=== PATIENT | male | born 1960 | race African-American/Black ===

== ENCOUNTER 2019-09-15 10:18 | Inpatient (IN) | payer MEDICAID ==
[~2019-09-15] VITALS: Ht 172.7 cm; Wt 68.0 kg
[2019-09-15 10:45] VITALS: BP 115/79
[2019-09-15 10:56] LABS: HEMATOCRIT 44.5 % (42.0-52.0); MEAN CORPUSCULAR VOLUME 90 FL (80-99); PLATELET COUNT 99 K/UL (150-450); RED BLOOD COUNT 4.94 M/UL (4.70-6.10); RED CELL DISTRIBUTION WIDTH 11.4 % (11.6-14.8); WHITE BLOOD COUNT 3.6 K/UL (4.8-10.8)
[2019-09-15 11:00] LABS: ANION GAP 11 mmol/L (5-15); BLOOD UREA NITROGEN 19 mg/dL (7-18); CALCIUM 8.3 MG/DL (8.5-10.1); CARBON DIOXIDE 26 MMOL/L (21-32); CHLORIDE 102 MMOL/L (98-107); CREATININE 1.6 MG/DL (0.55-1.30); SODIUM 139 MMOL/L (136-145)
[2019-09-15 11:11] LABS: ALANINE AMINOTRANSFERASE 138 U/L (12-78); ALBUMIN 3.7 G/DL (3.4-5.0); ALBUMIN/GLOBULIN RATIO 0.9 (1.0-2.7); ALKALINE PHOSPHATASE 64 U/L (46-116); ASPARTATE AMINO TRANSFERASE 161 U/L (15-37); BILIRUBIN,TOTAL 0.7 MG/DL (0.2-1.0)
--- NOTE | 2019-09-15 11:12 | Emergency Room Report ---
History of Present Illness General Chief Complaint: Generalized Weakness Source: Patient, EMS Present Illness HPI 58-year-old male presents for weakness, fever, cough. Symptoms x1 month. Cough is dry. Temp 100.5 in triage. Denies chest pain. States that he felt weak 2 days ago and passed out in the shower and hit his head. Has a cut to his left forehead. Tetanus unknown. Denies alcohol or drug use. Denies states he lives with his brother. States they have been typically self isolating. no known COVID contacts. No other aggravating relieving factors. 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 Patient History Past Medical History: none Past Surgical History: none Pertinent Family History: none Social History: Denies: smoking, alcohol use, drug use Immunizations: UTD Reviewed Nursing Documentation: PMH: Agreed; PSxH: Agreed Nursing Documentation-PMH Past Medical History: No Stated History Review of Systems All Other Systems: negative except mentioned in HPI Physical Exam Vital Signs Date Time Temp Pulse Resp B/P (MAP) Pulse Ox O2 Delivery O2 Flow Rate FiO2 09/15/19 10:15 100.6 79 16 113/72 (86) 95 Room Air Sp02 EP Interpretation: reviewed, normal General Appearance: no apparent distress, alert, GCS 15, non-toxic Head: normocephalic, other - 2cm laceration to L yarsanism. already healing Eyes: bilateral eye normal inspection, bilateral eye PERRL ENT: hearing grossly normal, normal pharynx, no angioedema, normal voice Neck: full range of motion, supple/symm/no masses Respiratory: chest non-tender, lungs clear, normal breath sounds, speaking full sentences Cardiovascular #1: regular rate, rhythm, no edema Cardiovascular #2: 2+ carotid (R), 2+ carotid (L), 2+ radial (R), 2+ radial (L) , 2+ dorsalis pedis (R), 2+ dorsalis pedis (L) Gastrointestinal: normal bowel sounds, non tender, soft, non-distended, no guarding, no rebound Rectal: deferred Genitourinary: normal inspection, no CVA tenderness Musculoskeletal: back normal, normal range of motion, gait/station normal, non- tender Neurologic: alert, motor strength/tone normal, oriented x3, sensory intact, responsive, speech normal Psychiatric: judgement/insight normal, memory normal, mood/affect normal, no suicidal/homicidal ideation Reflexes: 3+ bicep (R), 3+ bicep (L), 3+ tricep (R), 3+ tricep (L), 3+ knee (R) , 3+ knee (L) Skin: no rash Lymphatic: no adenopathy Medical Decision Making Diagnostic Impression: Primary Impression: Episode of generalized weakness Additional Impression: Suspected 2019-nCoV infection ER Course Hospital Course 58-year-old M presenting to ED with cough, weakness Differential diagnoses include: Pneumonia, CHF exacerbation, pneumothorax, fluid overload Clinical course Patient placed on stretcher. In isolation. I wore full PPE. On phototypesetting equipment monitor. After initial history and physical, I ordered labs, IV fluids, EKG, chest x-ray, blood cultures, UA. Patient placed on nasal cannula with O2 saturation improving Labs -leukopenia noted, hemoglobin/hematocrit stable, electrolytes ok, lactate okay troponins negative CXR - bilateral patchy opacities Concerning for COVID. Patient feels weak. Patient require admission. Antibiotics given. Case discussed with Dr. Porras and he agreed to the patient to his service for further care and support I feel this is a highly complex case requiring extensive working including EKG/ Rhythm strip, Xray/CT/US, Blood/urine lab work, repeat exams while in ED, and administration of strong opiates/narcotics for pain control, admission to hospital or close patient follow up. Diagnosis -episode generalized weakness, suspected COVID infection Patient admitted to floor in serious condition Labs Test 09/15/19 10:30 09/15/19 11:55 09/16/19 03:30 09/17/19 04:00 White Blood Count 3.6 K/UL (4.8-10.8) 3.5 K/UL (4.8-10.8) 3.9 K/UL (4.8-10.8) Red Blood Count 4.94 M/UL (4.70-6.10) 4.37 M/UL (4.70-6.10) 4.41 M/UL (4.70-6.10) Hemoglobin 15.0 G/DL (14.2-18.0) 13.2 G/DL (14.2-18.0) 13.2 G/DL (14.2-18.0) Hematocrit 44.5 % (42.0-52.0) 39.4 % (42.0-52.0) 39.7 % (42.0-52.0) Mean Corpuscular Volume 90 FL (80-99) 90 FL (80-99) 90 FL (80-99) Mean Corpuscular Hemoglobin 30.3 PG (27.0-31.0) 30.2 PG (27.0-31.0) 30.0 PG (27.0-31.0) Mean Corpuscular Hemoglobin Concent 33.6 G/DL (32.0-36.0) 33.5 G/DL (32.0-36.0) 33.3 G/DL (32.0-36.0) Red Cell Distribution Width 11.4 % (11.6-14.8) 11.5 % (11.6-14.8) 11.6 % (11.6-14.8) Platelet Count 99 K/UL (150-450) 85 K/UL (150-450) 96 K/UL (150-450) Mean Platelet Volume 11.4 FL (6.5-10.1) 10.4 FL (6.5-10.1) 10.4 FL (6.5-10.1) Neutrophils (%) (Auto) % (45.0-75.0) % (45.0-75.0) % (45.0-75.0) Lymphocytes (%) (Auto) % (20.0-45.0) % (20.0-45.0) % (20.0-45.0) Monocytes (%) (Auto) % (1.0-10.0) % (1.0-10.0) % (1.0-10.0) Eosinophils (%) (Auto) % (0.0-3.0) % (0.0-3.0) % (0.0-3.0) Basophils (%) (Auto) % (0.0-2.0) % (0.0-2.0) % (0.0-2.0) Differential Total Cells Counted 100 100 100 Neutrophils % (Manual) 71 % (45-75) 74 % (45-75) 78 % (45-75) Lymphocytes % (Manual) 20 % (20-45) 18 % (20-45) 15 % (20-45) Monocytes % (Manual) 9 % (1-10) 8 % (1-10) 7 % (1-10) Eosinophils % (Manual) 0 % (0-3) 0 % (0-3) 0 % (0-3) Basophils % (Manual) 0 % (0-2) 0 % (0-2) 0 % (0-2) Band Neutrophils 0 % (0-8) 0 % (0-8) 0 % (0-8) Platelet Estimate Decreased Decreased Decreased Platelet Morphology Normal Normal Normal Red Blood Cell Morphology Normal Normal Sodium Level 139 MMOL/L (136-145) 140 MMOL/L (136-145) 135 MMOL/L (136-145) Potassium Level 4.0 MMOL/L (3.5-5.1) 4.1 MMOL/L (3.5-5.1) 4.1 MMOL/L (3.5-5.1) Chloride Level 102 MMOL/L (98-107) 104 MMOL/L (98-107) 102 MMOL/L (98-107) Carbon Dioxide Level 26 MMOL/L (21-32) 21 MMOL/L (21-32) 22 MMOL/L (21-32) Anion Gap 11 mmol/L (5-15) 15 mmol/L (5-15) 11 mmol/L (5-15) Blood Urea Nitrogen 19 mg/dL (7-18) 13 mg/dL (7-18) 10 mg/dL (7-18) Creatinine 1.6 MG/DL (0.55-1.30) 1.2 MG/DL (0.55-1.30) 1.1 MG/DL (0.55-1.30) Estimat Glomerular Filtration Rate 44.6 mL/min (>60) > 60 mL/min (>60) > 60 mL/min (>60) Glucose Level 115 MG/DL (74-106) 99 MG/DL (74-106) 103 MG/DL (74-106) Lactic Acid Level 1.00 mmol/L (0.4-2.0) Calcium Level 8.3 MG/DL (8.5-10.1) 7.5 MG/DL (8.5-10.1) 7.7 MG/DL (8.5-10.1) Total Bilirubin 0.7 MG/DL (0.2-1.0) 0.4 MG/DL (0.2-1.0) 0.6 MG/DL (0.2-1.0) Aspartate Amino Transf (AST/SGOT) 161 U/L (15-37) 98 U/L (15-37) 76 U/L (15-37) Alanine Aminotransferase (ALT/SGPT) 138 U/L (12-78) 93 U/L (12-78) 77 U/L (12-78) Alkaline Phosphatase 64 U/L (46-116) 51 U/L (46-116) 51 U/L (46-116) Troponin I 0.000 ng/mL (0.000-0.056) Pro-B-Type Natriuretic Peptide 53 pg/mL (0-125) Total Protein 7.8 G/DL (6.4-8.2) 6.4 G/DL (6.4-8.2) 6.5 G/DL (6.4-8.2) Albumin 3.7 G/DL (3.4-5.0) 2.9 G/DL (3.4-5.0) 2.8 G/DL (3.4-5.0) Globulin 4.1 g/dL 3.5 g/dL 3.7 g/dL Albumin/Globulin Ratio 0.9 (1.0-2.7) 0.8 (1.0-2.7) 0.8 (1.0-2.7) Urine Color Yellow Urine Appearance Clear Urine pH 6 (4.5-8.0) Urine Specific Mize 1.020 (1.005-1.035) Urine Protein 3+ (NEGATIVE) Urine Glucose (UA) Negative (NEGATIVE) Urine Ketones 1+ (NEGATIVE) Urine Blood 1+ (NEGATIVE) Urine Nitrite Negative (NEGATIVE) Urine Bilirubin Negative (NEGATIVE) Urine Urobilinogen 1 MG/DL (0.0-1.0) Urine Leukocyte Esterase 1+ (NEGATIVE) Urine RBC 0-2 /HPF (0 - 0) Urine WBC 0-2 /HPF (0 - 0) Urine Squamous Epithelial Cells Occasional /LPF Urine Amorphous Sediment Occasional /LPF (NONE) Urine Bacteria Occasional /HPF (NONE) Urine Mucus Moderate /LPF (NONE/OCC) Anisocytosis 1+ Total Creatine Kinase 310 U/L (26-308) Thyroid Stimulating Hormone (TSH) 0.847 uiU/mL (0.358-3.740) Hepatitis B Surface Antigen Negative (Negative) Hepatitis B Surface Antibody, Quant 5.9 mIU/mL (Immunity>9.9) Hepatitis C Antibody <0.1 s/co ratio EKG Diagnostic Results Rate: normal Rhythm: NSR ST Segments: no acute changes ASA given to the pt in ED: No Rhythm Strip Diag. Results EP Interpretation: yes Rhythm: NSR, no PVC's, no ectopy Chest X-Ray Diagnostic Results Chest X-Ray Diagnostic Results : Chest X-Ray Ordered: Yes # of Views/Limited/Complete: 1 View Indication: Shortness of Breath EP Interpretation: Yes Interpretation: no pneumothorax, other - bilateral patchy opacities Impression: Other - PNA Vs COVID Electronically Signed by: Electronically signed by Victor Hugo Peterson MD Last Vital Signs Date Time Temp Pulse Resp B/P (MAP) Pulse Ox O2 Delivery O2 Flow Rate FiO2 09/15/19 10:45 76 18 Room Air 09/15/19 10:45 100.5 115/79 96 Status: improved Disposition: ADMITTED INPATIENT Condition: Serious Scripts No Active Prescriptions or Reported Meds Victor Hugo Peterson MD Sep 15, 2019 11:12
[2019-09-15 12:12] LABS: APPEARANCE,URINE CLEAR; BILIRUBIN, URINE NEGATIVE (NEGATIVE); GLUCOSE, URINE (UA) NEGATIVE (NEGATIVE); KETONES,URINE 1+ (NEGATIVE); LEUKOCYTE ESTERASE ,URINE 1+ (NEGATIVE); NITRITE,URINE NEGATIVE (NEGATIVE); PH,URINE 6 (4.5-8.0); PROTEIN,URINE 3+ (NEGATIVE); UROBILINOGEN,URINE 1 MG/DL (0.0-1.0)
[2019-09-15] MEDS ORDERED: Acetaminophen 500mg (ES) tab ORAL ONE (12:15)
[2019-09-15 12:18] LABS: COLOR,URINE YELLOW
[2019-09-15] MEDS ORDERED: cefTRIAXone 1 GM in NS 55 ML IVPB ONE (12:30)
[2019-09-15] MEDS ORDERED: Azithromycin 500 MG in NS 275 ML IV ONE (12:30)
[2019-09-15] MEDS ORDERED: Tetanus/Diptheria/Pertussis IM ONE (12:30)
[2019-09-15] MEDS ORDERED: Bacitracin Oint UD TOPIC ONE (12:30)
--- NOTE | 2019-09-15 12:49 | Diagnostic Imaging Report ---
Indication: Headache status post trauma Technique: Continuous helical CT scanning of the head was performed utilizing automated exposure control without intravenous contrast material. Axial and coronal reconstructions were obtained. Comparison: None CT dose: Total DLP 1152.4 mGycm; CTDI vol 53.4 mGy Findings: There is no acute intracranial hemorrhage, mass effect or cortical edema. The ventricles, cisterns and sulci are mildly prominent consistent with mild age-related atrophy. Periventricular hypoattenuation is seen, a nonspecific finding. Visualized mastoid air cells and paranasal sinuses are unremarkable. No acute skull fracture. Left periorbital soft tissue swelling. IMPRESSION: Left periorbital soft tissue swelling. No acute skull fracture. No evidence of acute intracranial hemorrhage, mass effect or cortical edema The CT scanner at [facility] is accredited by the [employer] and the scans are performed using protocols designed to limit radiation exposure to as low as reasonably achievable to attain images of sufficient resolution adequate for diagnostic evaluation.
[2019-09-15 13:39] VITALS: BP 98/66
--- NOTE | 2019-09-15 14:03 | Diagnostic Imaging Report ---
Indication: Shortness of breath Technique: One view of the chest Comparison: none Findings: Suboptimal inspiration with some crowding of bronchovascular markings. There is equivocal mild interstitial prominence on the right as well as questionable streaky retrocardiac opacities. The pleural spaces are grossly clear Impression: Questionable minimal interstitial disease bilaterally, could indicate early infiltrates if real. Correlate with clinical findings
[2019-09-15 15:35] VITALS: BP 117/70
[2019-09-15 16:54] VITALS: BP 126/81
[2019-09-15] MEDS: 1/2NS w/KCl 20mEq 1000ml 1,000 ML IV SCH (18:44)
[2019-09-15 20:00] VITALS: BP 128/69
[2019-09-15] MEDS: cefTRIAXone 1 GM in D5W 55 ML IVPB SCH (20:04)
--- NOTE | 2019-09-15 21:59 | History and Physical Report ---
DATE OF ADMISSION: 09/15/2019 CHIEF COMPLAINT/REASON FOR HOSPITALIZATION: The patient is a 58-year-old man admitted with cough, fever, weakness, and elevated liver enzymes. He has been eating poorly and has anorexia and constipation. Apparently about 2 days ago, he fell to the floor from the . He might have passed out. There is a small cut on the left forehead. He has generally been healthy, but he has had increasing weakness. He is not known to have any COVID contacts, but he does have a cough. SURGERIES: Childhood surgery of abdominal, we cannot clarify. MEDICATIONS: None. HABITS: He is a nondrinker and nonsmoker. No use of illicit drugs. SOCIAL HISTORY: He lives with his brother. SYSTEM REVIEW: HEAD, EYES, EARS, NOSE, AND THROAT: Vision and hearing is good. Perhaps there is some decreased sense of smell. He is a poor historian. PULMONARY: Cough as above, persistent, nonproductive. No history of asthma or TB. CARDIAC: No angina or LA. GASTROINTESTINAL: Anorexia as above. No abdominal pain. No vomiting or diarrhea. GENITOURINARY: No dysuria, hematuria, or kidney stones. NEUROLOGIC: No CVA or seizures. PHYSICAL EXAMINATION: GENERAL: The patient is a well-developed man. VITAL SIGNS: Temperature 100.6, heart rate 79, respirations 16, and blood pressure 113/72. HEAD, EYES, EARS, NOSE, AND THROAT: Sclerae are nonicteric. Ocular motion is intact in all directions. There is a 2 cm laceration to the left jain which is healing. NECK: No adenopathy. LUNGS: Clear. HEART: Regular rhythm. No murmur. ABDOMEN: Soft. No focal tenderness. I am unable to feel liver or spleen. EXTREMITIES: No edema cyanosis or clubbing. NEUROLOGIC: He is alert and responsive. Cranial nerves are intact. No focal weakness. REVIEW OF DATABASE: Chest x-ray shows some increased interstitial markings, possibly early infiltrate. The CT of the brain was done showing left periorbital soft tissue swelling. No acute intracranial lesion. He has the following laboratory results, white count 3.6, hemoglobin is 15, and platelets is 99,000. The chemistries show normal electrolytes, BUN 19, creatinine 1.6, glucose 115. AST 161 and ALT 138. Troponin 0. Albumin 3.7. The urine is significant for 3+ protein, 1+ ketones, 1+ blood, 0 to 2 rbc's, and 0 to 2 wbc's per high-power field. IMPRESSION: 1. Fevers and cough, rule out COVID-19, rule out community-acquired pneumonia. 2. Dehydration. 3. Likely acute renal failure. 4. Abnormal urinalysis with proteinuria and positive blood, concerned for rhabdomyolysis, concerned for possible proteinuric renal disease. 5. Elevated liver enzymes, nonspecific. Rule out biliary tract or liver lesions or hepatitis. PLAN: 1. Hydration. 2. Tests for COVID-19 pending. Treat with antibiotics for community-acquired pneumonia. 3. Follow up on the renal function studies. Nas Porras M.D. DR: ANGELY JOB#: [id number] CC:
[2019-09-16] VITALS: BP 117/79
[2019-09-16] MEDS: 1/2NS w/KCl 20mEq 1000ml 1,000 ML IV SCH ×3 (03:10→17:41)
[2019-09-16 04:00] VITALS: BP 127/73
[2019-09-16 06:24] LABS: HEMATOCRIT 39.4 % (42.0-52.0); HEMOGLOBIN 13.2 G/DL (14.2-18.0); MEAN CORPUSCULAR VOLUME 90 FL (80-99); PLATELET COUNT 85 K/UL (150-450); RED BLOOD COUNT 4.37 M/UL (4.70-6.10); RED CELL DISTRIBUTION WIDTH 11.5 % (11.6-14.8); WHITE BLOOD COUNT 3.5 K/UL (4.8-10.8)
[2019-09-16 07:24] LABS: CREATINE KINASE 310 U/L (26-308)
[2019-09-16 07:29] LABS: ALANINE AMINOTRANSFERASE 93 U/L (12-78); ALBUMIN 2.9 G/DL (3.4-5.0); ALBUMIN/GLOBULIN RATIO 0.8 (1.0-2.7); ALKALINE PHOSPHATASE 51 U/L (46-116); ANION GAP 15 mmol/L (5-15); ASPARTATE AMINO TRANSFERASE 98 U/L (15-37); BILIRUBIN,TOTAL 0.4 MG/DL (0.2-1.0); BLOOD UREA NITROGEN 13 mg/dL (7-18); CALCIUM 7.5 MG/DL (8.5-10.1); CARBON DIOXIDE 21 MMOL/L (21-32); CHLORIDE 104 MMOL/L (98-107); CREATININE 1.2 MG/DL (0.55-1.30); POTASSIUM 4.1 MMOL/L (3.5-5.1); SODIUM 140 MMOL/L (136-145)
[2019-09-16 08:00] VITALS: BP 133/76
[2019-09-16] MEDS: Azithromycin 250 MG in D5W 275 ML IV SCH (08:49)
[2019-09-16] MEDS ORDERED: cefTRIAXone 1 GM in D5W 55 ML IVPB SCH (09:00)
--- NOTE | 2019-09-16 11:00 | Diagnostic Imaging Report ---
Indication: Cough Technique: One view of the chest Comparison: 09/15/2019 Findings: Bilateral right greater than left infiltrates appears slightly increased as compared to the prior exam. The heart size is normal. The pleural spaces are clear Impression: Slightly increased bilateral infiltrates, over one day
[2019-09-16 12:00] VITALS: BP 130/75
--- NOTE | 2019-09-16 12:34 | General Progress Note ---
Assessment/Plan Problem List: (1) Elevated liver enzymes ICD Codes: R74.8 - Abnormal levels of other serum enzymes SNOMED: 310504466 (2) Community acquired pneumonia ICD Codes: J18.9 - Pneumonia, unspecified organism SNOMED: 114301694 (3) Suspected 2019-nCoV infection ICD Codes: Z20.828 - Contact with and (suspected) exposure to other viral communicable diseases SNOMED: 449743371 (4) Episode of generalized weakness ICD Codes: R53.1 - Weakness SNOMED: 18662145 (5) EMILY (acute kidney injury) ICD Codes: N17.9 - Acute kidney failure, unspecified SNOMED: 4860365, 92179040 (6) Dehydration ICD Codes: E86.0 - Dehydration SNOMED: 83779678 Assessment/Plan: await covid, empiric atb, us abd Subjective Constitutional: Reports: weakness HEENT: Reports: no symptoms Cardiovascular: Reports: no symptoms Respiratory: Reports: no symptoms Gastrointestinal/Abdominal: Reports: no symptoms Genitourinary: Reports: no symptoms Neurologic/Psychiatric: Reports: no symptoms Endocrine: Reports: no symptoms Hematologic/Lymphatic: Reports: no symptoms Allergies: Coded Allergies: No Known Allergies (Unverified , 09/15/19) Objective Last 24 Hour Vital Signs Date Time Temp Pulse Resp B/P (MAP) Pulse Ox O2 Delivery O2 Flow Rate FiO2 09/16/19 09:00 Room Air 09/16/19 08:00 98.2 66 20 133/76 (95) 96 09/16/19 04:00 98.6 68 18 127/73 (91) 93 09/16/19 00:00 98.9 74 18 117/79 (92) 96 09/15/19 21:00 Room Air 09/15/19 20:00 99.8 70 20 128/69 (88) 96 09/15/19 17:20 Room Air 09/15/19 16:57 97.8 09/15/19 16:54 62 24 126/81 99 Nasal Cannula 2.0 09/15/19 15:51 59 24 Nasal Cannula 2.0 09/15/19 15:35 57 24 117/70 97 Room Air 09/15/19 13:39 99.1 60 27 98/66 95 Room Air 09/15/19 12:42 99.8 Intake and Output 09/15/19 09/16/19 19:00 07:00 Intake Total 2275 ml 1360 ml Balance 2275 ml 1360 ml Intake Oral 0 ml IV Total 2275 ml 1360 ml # Voids 2 Laboratory Tests 09/16/19 03:30: White Blood Count 3.5L, Red Blood Count 4.37L, Hemoglobin 13.2L, Hematocrit 39.4L, Mean Corpuscular Volume 90, Mean Corpuscular Hemoglobin 30.2, Mean Corpuscular Hemoglobin Concent 33.5, Red Cell Distribution Width 11.5L, Platelet Count 85L, Mean Platelet Volume 10.4H, Neutrophils (%) (Auto) , Lymphocytes (%) (Auto) , Monocytes (%) (Auto) , Eosinophils (%) (Auto) , Basophils (%) (Auto) , Differential Total Cells Counted 100, Neutrophils % ( Manual) 74, Lymphocytes % (Manual) 18L, Monocytes % (Manual) 8, Eosinophils % ( Manual) 0, Basophils % (Manual) 0, Band Neutrophils 0, Platelet Estimate DecreasedL, Platelet Morphology Normal, Anisocytosis 1+, Sodium Level 140, Potassium Level 4.1, Chloride Level 104, Carbon Dioxide Level 21, Anion Gap 15, Blood Urea Nitrogen 13, Creatinine 1.2, Estimat Glomerular Filtration Rate > 60 , Glucose Level 99, Calcium Level 7.5L, Total Bilirubin 0.4, Aspartate Amino Transf (AST/SGOT) 98H, Alanine Aminotransferase (ALT/SGPT) 93H, Alkaline Phosphatase 51, Total Creatine Kinase 310H, Total Protein 6.4, Albumin 2.9L, Globulin 3.5, Albumin/Globulin Ratio 0.8L, Thyroid Stimulating Hormone (TSH) 0.847, Hepatitis B Surface Antigen [Pending], Hepatitis B Surface Antibody, Quant [Pending], Hepatitis C Antibody [Pending] Height (Feet): 5 Height (Inches): 8.00 Weight (Pounds): 150 General Appearance: no apparent distress, alert EENT: normal ENT inspection Neck: normal alignment Cardiovascular: regular rhythm Respiratory/Chest: lungs clear Abdomen: non tender Edema: no edema noted Arm (L), no edema noted Arm (R), no edema noted Leg (L), no edema noted Leg (R), no edema noted Pedal (L), no edema noted Pedal (R), no edema noted Generalized Nas Porras MD Sep 16, 2019 12:34
[2019-09-16] MEDS ORDERED: Milk of Magnesia 30ml Ud ORAL PRN (12:45)
[2019-09-16] MEDS ORDERED: Acetaminophen 650 MG SUPP RECTAL PRN (12:45)
[2019-09-16 16:00] VITALS: BP 117/70
--- NOTE | 2019-09-16 16:15 | Consultation ---
DATE OF CONSULTATION: 09/16/2019 INFECTIOUS DISEASE CONSULTATION This consult is for coverage of Dr. Vincent. CONSULTING PHYSICIAN: Kobi Nichols MD. PRIMARY ATTENDING: Nas Porras MD. REASON FOR CONSULT: Pneumonia. HISTORY OF PRESENT ILLNESS: This is a 58-year-old male admitted yesterday complaining of weakness. He is not feeling good for couple of weeks, but recently started to develop coughing and fever. He passed out at home. At the time of admission had fever of 100.6. PAST MEDICAL HISTORY: Insignificant. Had childhood abdominal surgery. Does not remember what was the reason for surgery. ALLERGIES: No known drug allergy. MEDICATIONS: Getting azithromycin, ceftriaxone. SOCIAL HISTORY: Single. Denies alcohol, drug abuse, or smoking. REVIEW OF SYSTEMS: Feels very weak. Has dry mouth, decreased appetite, fever, dry cough when breathes deeply. No nausea. No vomiting. No edema. No dysuria. PHYSICAL EXAMINATION: VITAL SIGNS: Temperature 98.2, pulse 66, blood pressure 133/76. GENERAL APPEARANCE: Seems to be well developed. No acute distress. HEAD AND NECK: Some scratches in the left side of the face near eyelid. HEART: Normal rate. LUNGS: Clear. ABDOMEN: Soft, nontender. EXTREMITIES: No edema. NEUROLOGIC: He is awake, alert, oriented x3. LABORATORY AND DIAGNOSTIC DATA: WBC 3.5, hemoglobin 13.2, hematocrit 39.4, platelets is 85. Has decrease in lymphocytes to 18%. Patient had a CT scan of the head that showed left periorbital soft tissue swelling. No fracture. Chest x-ray showed bilateral infiltrates. IMPRESSION: Community-acquired pneumonia. Patient is very suspicious to have COVID-19 disease. Had syncopal episode, acute renal failure, elevation in liver enzymes, leukopenia, thrombocytopenia. RECOMMENDATION: Continue with ceftriaxone and Zithromax. We will follow up COVID-19 test. We will follow up the cultures. At the end of my exam, I thank Dr. Porras for involving me in the care of this patient. Kobi Nichols M.D. DR: NUNO JOB#: [id number] CC:
[2019-09-16 20:00] VITALS: BP 123/78
[2019-09-16] MEDS: cefTRIAXone 1 GM in D5W 55 ML IVPB SCH (20:11)
[2019-09-17] VITALS: BP 138/80
[2019-09-17] MEDS: 1/2NS w/KCl 20mEq 1000ml 1,000 ML IV SCH ×3 (03:09→15:58)
[2019-09-17 04:00] VITALS: BP 141/78
[2019-09-17 05:56] LABS: HEMATOCRIT 39.7 % (42.0-52.0); HEMOGLOBIN 13.2 G/DL (14.2-18.0); MEAN CORPUSCULAR VOLUME 90 FL (80-99); PLATELET COUNT 96 K/UL (150-450); RED BLOOD COUNT 4.41 M/UL (4.70-6.10); RED CELL DISTRIBUTION WIDTH 11.6 % (11.6-14.8); WHITE BLOOD COUNT 3.9 K/UL (4.8-10.8)
[2019-09-17 06:07] LABS: ALANINE AMINOTRANSFERASE 77 U/L (12-78); ALBUMIN 2.8 G/DL (3.4-5.0); ALBUMIN/GLOBULIN RATIO 0.8 (1.0-2.7); ALKALINE PHOSPHATASE 51 U/L (46-116); ANION GAP 11 mmol/L (5-15); ASPARTATE AMINO TRANSFERASE 76 U/L (15-37); BILIRUBIN,TOTAL 0.6 MG/DL (0.2-1.0); BLOOD UREA NITROGEN 10 mg/dL (7-18); CALCIUM 7.7 MG/DL (8.5-10.1); CARBON DIOXIDE 22 MMOL/L (21-32); CHLORIDE 102 MMOL/L (98-107); CREATININE 1.1 MG/DL (0.55-1.30); POTASSIUM 4.1 MMOL/L (3.5-5.1); SODIUM 135 MMOL/L (136-145)
[2019-09-17 08:00] VITALS: BP 138/76
[2019-09-17] MEDS: Azithromycin 250 MG in D5W 275 ML IV SCH (09:09)
--- NOTE | 2019-09-17 10:14 | Infectious Diseases Prog Note ---
Assessment/Plan Assessment/Plan antibiotics : ceftriaxone, azithromycin A 1. COVID 19 pneumonia on room air, O2 saturation 93 percent 2. thrombocytopenia 3. increased LFT improving P 1. consider remdesivir EUA 2. d/c ceftriaxone, azithromycin 3. will follow up cultures 4. continue isolation Subjective Constitutional: Denies: fever, chills Respiratory: Denies: shortness of breath, dry cough Gastrointestinal/Abdominal: Reports: diarrhea; Denies: nausea, vomiting Musculoskeletal: Denies: pain Allergies: Coded Allergies: No Known Allergies (Unverified , 09/15/19) Objective Last 24 Hour Vital Signs Date Time Temp Pulse Resp B/P (MAP) Pulse Ox O2 Delivery O2 Flow Rate FiO2 09/17/19 09:00 Room Air 09/17/19 08:00 99.0 70 22 138/76 (96) 95 09/17/19 04:00 99.5 68 25 141/78 (99) 93 09/17/19 00:00 98.7 82 23 138/80 (99) 94 09/16/19 21:00 Room Air 09/16/19 20:00 99.9 65 22 123/78 (93) 93 09/16/19 16:00 100.0 65 18 117/70 (86) 95 09/16/19 12:00 98.4 68 20 130/75 (93) 96 Height (Feet): 5 Height (Inches): 8.00 Weight (Pounds): 150 Microbiology Date/Time Source Procedure Growth Status 09/15/19 13:18 Nasopharynx Coronavirus COVID-19 PCR ([facility]) - Final Complete Laboratory Tests Test 09/17/19 04:00 White Blood Count 3.9 K/UL (4.8-10.8) L Red Blood Count 4.41 M/UL (4.70-6.10) L Hemoglobin 13.2 G/DL (14.2-18.0) L Hematocrit 39.7 % (42.0-52.0) L Mean Corpuscular Volume 90 FL (80-99) Mean Corpuscular Hemoglobin 30.0 PG (27.0-31.0) Mean Corpuscular Hemoglobin Concent 33.3 G/DL (32.0-36.0) Red Cell Distribution Width 11.6 % (11.6-14.8) Platelet Count 96 K/UL (150-450) L Mean Platelet Volume 10.4 FL (6.5-10.1) H Neutrophils (%) (Auto) % (45.0-75.0) Lymphocytes (%) (Auto) % (20.0-45.0) Monocytes (%) (Auto) % (1.0-10.0) Eosinophils (%) (Auto) % (0.0-3.0) Basophils (%) (Auto) % (0.0-2.0) Differential Total Cells Counted 100 Neutrophils % (Manual) 78 % (45-75) H Lymphocytes % (Manual) 15 % (20-45) L Monocytes % (Manual) 7 % (1-10) Eosinophils % (Manual) 0 % (0-3) Basophils % (Manual) 0 % (0-2) Band Neutrophils 0 % (0-8) Platelet Estimate Decreased L Platelet Morphology Normal Red Blood Cell Morphology Normal Sodium Level 135 MMOL/L (136-145) L Potassium Level 4.1 MMOL/L (3.5-5.1) Chloride Level 102 MMOL/L (98-107) Carbon Dioxide Level 22 MMOL/L (21-32) Anion Gap 11 mmol/L (5-15) Blood Urea Nitrogen 10 mg/dL (7-18) Creatinine 1.1 MG/DL (0.55-1.30) Estimat Glomerular Filtration Rate > 60 mL/min (>60) Glucose Level 103 MG/DL (74-106) Calcium Level 7.7 MG/DL (8.5-10.1) L Total Bilirubin 0.6 MG/DL (0.2-1.0) Aspartate Amino Transf (AST/SGOT) 76 U/L (15-37) H Alanine Aminotransferase (ALT/SGPT) 77 U/L (12-78) Alkaline Phosphatase 51 U/L (46-116) Total Protein 6.5 G/DL (6.4-8.2) Albumin 2.8 G/DL (3.4-5.0) L Globulin 3.7 g/dL Albumin/Globulin Ratio 0.8 (1.0-2.7) L Current Medications Medications (Trade) Dose Ordered Sig/Vivek Route PRN Reason Start Time Stop Time Status Last Admin Dose Admin Acetaminophen (Tylenol) 650 mg Q4H PRN ORAL Temp >100.5 09/16/19 17:30 10/16/19 17:29 Azithromycin 250 mg/Dextrose 275 ml @ 275 mls/hr Q24HRS IV 09/16/19 09:00 09/21/19 08:59 09/17/19 09:09 Ceftriaxone Sodium 1 gm/ Dextrose 55 ml @ 110 mls/hr Q24H IVPB 09/15/19 21:00 09/22/19 20:59 09/16/19 20:11 Dextrose (Dextrose 50%) 25 ml Q30M PRN IV Hypoglycemia 09/15/19 17:15 12/14/19 17:14 Dextrose (Dextrose 50%) 50 ml Q30M PRN IV Hypoglycemia 09/15/19 17:15 12/14/19 17:14 Magnesium Hydroxide (Mom) 30 ml DAILYPRN PRN ORAL Constipation 09/16/19 12:45 10/16/19 12:44 Sodium 1,000 ml @ 125 mls/hr Q8H IV 09/15/19 18:11 10/15/19 18:10 09/17/19 09:10 Juhi Vincent MD Sep 17, 2019 10:14
[2019-09-17] MEDS ORDERED: Remdesivir Fact Sheet MISC SCH (11:30)
[2019-09-17 12:00] VITALS: BP 126/75
--- NOTE | 2019-09-17 13:42 | General Progress Note ---
Assessment/Plan Problem List: (1) Elevated liver enzymes ICD Codes: R74.8 - Abnormal levels of other serum enzymes SNOMED: 258861283 (2) Community acquired pneumonia ICD Codes: J18.9 - Pneumonia, unspecified organism SNOMED: 341467843 (3) Suspected 2019-nCoV infection ICD Codes: Z20.828 - Contact with and (suspected) exposure to other viral communicable diseases SNOMED: 364112074 (4) Episode of generalized weakness ICD Codes: R53.1 - Weakness SNOMED: 61672367 (5) EMILY (acute kidney injury) ICD Codes: N17.9 - Acute kidney failure, unspecified SNOMED: 2137004, 59105488 (6) Dehydration ICD Codes: E86.0 - Dehydration SNOMED: 85225577 (7) COVID-19 virus detected ICD Codes: U07.1 - COVID-19 SNOMED: 043637372, 137792201 Assessment/Plan: await covid, + empiric atb stopped, remdesivir, , us abd cancel Subjective Constitutional: Reports: weakness HEENT: Reports: no symptoms Respiratory: Reports: cough Gastrointestinal/Abdominal: Reports: poor appetite Genitourinary: Reports: no symptoms Neurologic/Psychiatric: Reports: no symptoms Endocrine: Reports: no symptoms Hematologic/Lymphatic: Reports: no symptoms Allergies: Coded Allergies: No Known Allergies (Unverified , 09/15/19) Objective Last 24 Hour Vital Signs Date Time Temp Pulse Resp B/P (MAP) Pulse Ox O2 Delivery O2 Flow Rate FiO2 09/17/19 12:00 98.2 69 19 126/75 (92) 93 09/17/19 09:00 Room Air 09/17/19 08:00 99.0 70 22 138/76 (96) 95 09/17/19 04:00 99.5 68 25 141/78 (99) 93 09/17/19 00:00 98.7 82 23 138/80 (99) 94 09/16/19 21:00 Room Air 09/16/19 20:00 99.9 65 22 123/78 (93) 93 09/16/19 16:00 100.0 65 18 117/70 (86) 95 Intake and Output 09/16/19 09/17/19 19:00 07:00 Intake Total 1575 ml 1180 ml Balance 1575 ml 1180 ml Intake Oral 300 ml IV Total 1275 ml 1180 ml # Voids 3 2 # Bowel Movements 1 Laboratory Tests 09/17/19 04:00: White Blood Count 3.9L, Red Blood Count 4.41L, Hemoglobin 13.2L, Hematocrit 39.7L, Mean Corpuscular Volume 90, Mean Corpuscular Hemoglobin 30.0, Mean Corpuscular Hemoglobin Concent 33.3, Red Cell Distribution Width 11.6, Platelet Count 96L, Mean Platelet Volume 10.4H, Neutrophils (%) (Auto) , Lymphocytes (%) (Auto) , Monocytes (%) (Auto) , Eosinophils (%) (Auto) , Basophils (%) (Auto) , Differential Total Cells Counted 100, Neutrophils % (Manual) 78H, Lymphocytes % (Manual) 15L, Monocytes % (Manual) 7, Eosinophils % (Manual) 0, Basophils % ( Manual) 0, Band Neutrophils 0, Platelet Estimate DecreasedL, Platelet Morphology Normal, Red Blood Cell Morphology Normal, Sodium Level 135L, Potassium Level 4.1, Chloride Level 102, Carbon Dioxide Level 22, Anion Gap 11, Blood Urea Nitrogen 10, Creatinine 1.1, Estimat Glomerular Filtration Rate > 60 , Glucose Level 103, Calcium Level 7.7L, Total Bilirubin 0.6, Aspartate Amino Transf (AST/SGOT) 76H, Alanine Aminotransferase (ALT/SGPT) 77, Alkaline Phosphatase 51, Total Protein 6.5, Albumin 2.8L, Globulin 3.7, Albumin/Globulin Ratio 0.8L Height (Feet): 5 Height (Inches): 8.00 Weight (Pounds): 150 General Appearance: no apparent distress, alert EENT: normal ENT inspection Neck: normal alignment Cardiovascular: normal rate Respiratory/Chest: lungs clear Abdomen: non tender Edema: no edema noted Arm (L), no edema noted Arm (R), no edema noted Leg (L), no edema noted Leg (R), no edema noted Pedal (L), no edema noted Pedal (R), no edema noted Generalized Nas Porras MD Sep 17, 2019 13:42
[2019-09-17] MEDS ORDERED: Loading Dose:Remdesivir 200mg/NS 210ml IV SCH ×2 (14:00)
[2019-09-17 16:00] VITALS: BP 130/80
[2019-09-17 19:58] VITALS: BP 130/75
[2019-09-18] VITALS: BP 133/78
[2019-09-18 04:00] VITALS: BP 141/88
[2019-09-18 07:25] LABS: ALANINE AMINOTRANSFERASE 77 U/L (12-78); ALBUMIN 2.7 G/DL (3.4-5.0); ALBUMIN/GLOBULIN RATIO 0.7 (1.0-2.7); ALKALINE PHOSPHATASE 59 U/L (46-116); ANION GAP 11 mmol/L (5-15); ASPARTATE AMINO TRANSFERASE 66 U/L (15-37); BILIRUBIN,DIRECT 0.2 MG/DL (0.0-0.3); BILIRUBIN,TOTAL 0.6 MG/DL (0.2-1.0); BLOOD UREA NITROGEN 7 mg/dL (7-18); CARBON DIOXIDE 23 MMOL/L (21-32); CHLORIDE 104 MMOL/L (98-107); POTASSIUM 3.9 MMOL/L (3.5-5.1); SODIUM 138 MMOL/L (136-145)
[2019-09-18 08:00] VITALS: BP 120/82
[2019-09-18] MEDS: 1/2NS w/KCl 20mEq 1000ml 1,000 ML IV SCH (09:58)
--- NOTE | 2019-09-18 10:29 | Infectious Diseases Prog Note ---
Assessment/Plan Assessment/Plan antibiotics : remdesivir 09.17.19 - A 1. COVID 19 pneumonia on room air, O2 saturation 93 percent 2. thrombocytopenia 3. increased LFT improving P 1. consider remdesivir EUA day 2 2. will follow up cultures 3. continue isolation Subjective Constitutional: Denies: fever, chills Respiratory: Reports: shortness of breath, dry cough Gastrointestinal/Abdominal: Reports: diarrhea; Denies: nausea, vomiting Musculoskeletal: Denies: pain Allergies: Coded Allergies: No Known Allergies (Unverified , 09/15/19) Objective Last 24 Hour Vital Signs Date Time Temp Pulse Resp B/P (MAP) Pulse Ox O2 Delivery O2 Flow Rate FiO2 09/18/19 09:16 Room Air 09/18/19 08:00 98.2 70 18 120/82 (95) 92 09/18/19 04:00 97.5 60 22 141/88 (105) 95 09/18/19 00:00 99.5 82 20 133/78 (96) 93 09/17/19 21:00 Room Air 09/17/19 19:58 99.1 80 21 130/75 (93) 94 09/17/19 16:00 98.3 71 20 130/80 (97) 94 09/17/19 12:00 98.2 69 19 126/75 (92) 93 Height (Feet): 5 Height (Inches): 8.00 Weight (Pounds): 150 Microbiology Date/Time Source Procedure Growth Status 09/15/19 10:30 Blood Blood Culture - Preliminary NO GROWTH AFTER 48 HOURS Resulted 09/15/19 10:30 Blood Blood Culture - Preliminary NO GROWTH AFTER 48 HOURS Resulted 09/15/19 13:18 Nasopharynx Coronavirus COVID-19 PCR ([facility]) - Final Complete Laboratory Tests Test 09/18/19 04:00 Sodium Level 138 MMOL/L (136-145) Potassium Level 3.9 MMOL/L (3.5-5.1) Chloride Level 104 MMOL/L (98-107) Carbon Dioxide Level 23 MMOL/L (21-32) Anion Gap 11 mmol/L (5-15) Blood Urea Nitrogen 7 mg/dL (7-18) Creatinine 1.0 MG/DL (0.55-1.30) Estimat Glomerular Filtration Rate > 60 mL/min (>60) Glucose Level 96 MG/DL (74-106) Calcium Level 8.0 MG/DL (8.5-10.1) L Total Bilirubin 0.6 MG/DL (0.2-1.0) Direct Bilirubin 0.2 MG/DL (0.0-0.3) Aspartate Amino Transf (AST/SGOT) 66 U/L (15-37) H Alanine Aminotransferase (ALT/SGPT) 77 U/L (12-78) Alkaline Phosphatase 59 U/L (46-116) Total Protein 6.5 G/DL (6.4-8.2) Albumin 2.7 G/DL (3.4-5.0) L Globulin 3.8 g/dL Albumin/Globulin Ratio 0.7 (1.0-2.7) L Current Medications Medications (Trade) Dose Ordered Sig/Vivek Route PRN Reason Start Time Stop Time Status Last Admin Dose Admin Acetaminophen (Tylenol) 650 mg Q4H PRN ORAL Temp >100.5 09/16/19 17:30 10/16/19 17:29 Dextrose (Dextrose 50%) 25 ml Q30M PRN IV Hypoglycemia 09/15/19 17:15 12/14/19 17:14 Dextrose (Dextrose 50%) 50 ml Q30M PRN IV Hypoglycemia 09/15/19 17:15 12/14/19 17:14 Magnesium Hydroxide (Mom) 30 ml DAILYPRN PRN ORAL Constipation 09/16/19 12:45 10/16/19 12:44 Remdesivir 100 mg/ Sodium Chloride 250 ml @ 250 mls/hr Q24H IV 09/18/19 15:00 09/21/19 15:59 Sodium 1,000 ml @ 50 mls/hr Q20H IV 09/17/19 14:00 10/17/19 13:59 09/18/19 09:58 Juhi Vincent MD Sep 18, 2019 10:29
[2019-09-18 12:00] VITALS: BP 127/84
[2019-09-18] MEDS: Maintenance Dose:Remdesivir 100mg/NS 230ml x 4 Doses IV SCH ×2 (14:28)
[2019-09-18 16:00] VITALS: BP 130/83
--- NOTE | 2019-09-18 17:29 | General Progress Note ---
Assessment/Plan Problem List: (1) Elevated liver enzymes ICD Codes: R74.8 - Abnormal levels of other serum enzymes SNOMED: 336598557 (2) Community acquired pneumonia ICD Codes: J18.9 - Pneumonia, unspecified organism SNOMED: 719471071 (3) Suspected 2019-nCoV infection ICD Codes: Z20.828 - Contact with and (suspected) exposure to other viral communicable diseases SNOMED: 589137871 (4) Episode of generalized weakness ICD Codes: R53.1 - Weakness SNOMED: 13714749 (5) EMILY (acute kidney injury) ICD Codes: N17.9 - Acute kidney failure, unspecified SNOMED: 2718197, 25162342 (6) Dehydration ICD Codes: E86.0 - Dehydration SNOMED: 57389310 (7) COVID-19 virus detected ICD Codes: U07.1 - COVID-19 SNOMED: 177386612, 620993466 Assessment/Plan: covid, + empiric atb stopped, remdesivir, , us abd cancel Subjective Constitutional: Reports: weakness HEENT: Reports: no symptoms Cardiovascular: Reports: no symptoms Respiratory: Reports: cough Gastrointestinal/Abdominal: Reports: no symptoms Genitourinary: Reports: no symptoms Neurologic/Psychiatric: Reports: no symptoms Endocrine: Reports: no symptoms Hematologic/Lymphatic: Reports: no symptoms Allergies: Coded Allergies: No Known Allergies (Unverified , 09/15/19) Objective Last 24 Hour Vital Signs Date Time Temp Pulse Resp B/P (MAP) Pulse Ox O2 Delivery O2 Flow Rate FiO2 09/18/19 16:00 97.6 81 19 130/83 (99) 95 09/18/19 12:00 97.9 72 20 127/84 (98) 93 09/18/19 09:16 Room Air 09/18/19 08:00 98.2 70 18 120/82 (95) 92 09/18/19 04:00 97.5 60 22 141/88 (105) 95 09/18/19 00:00 99.5 82 20 133/78 (96) 93 09/17/19 21:00 Room Air 09/17/19 19:58 99.1 80 21 130/75 (93) 94 Intake and Output 09/17/19 09/18/19 19:00 07:00 Intake Total 1195 ml 550 ml Balance 1195 ml 550 ml Intake Oral 420 ml IV Total 775 ml 550 ml # Voids 2 2 # Bowel Movements 1 1 Laboratory Tests 09/18/19 04:00: Sodium Level 138, Potassium Level 3.9, Chloride Level 104, Carbon Dioxide Level 23, Anion Gap 11, Blood Urea Nitrogen 7, Creatinine 1.0, Estimat Glomerular Filtration Rate > 60, Glucose Level 96, Calcium Level 8.0L, Total Bilirubin 0.6 , Direct Bilirubin 0.2, Aspartate Amino Transf (AST/SGOT) 66H, Alanine Aminotransferase (ALT/SGPT) 77, Alkaline Phosphatase 59, Total Protein 6.5, Albumin 2.7L, Globulin 3.8, Albumin/Globulin Ratio 0.7L Height (Feet): 5 Height (Inches): 8.00 Weight (Pounds): 150 General Appearance: no apparent distress EENT: normal ENT inspection Neck: normal alignment Cardiovascular: normal rate Respiratory/Chest: lungs clear Abdomen: non tender, soft Edema: no edema noted Arm (L), no edema noted Arm (R), no edema noted Leg (L), no edema noted Leg (R), no edema noted Pedal (L), no edema noted Pedal (R), no edema noted Generalized 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
[2019-09-18 20:00] VITALS: BP 131/84
[2019-09-19] VITALS: BP 138/78
[2019-09-19 04:00] VITALS: BP 134/85
[2019-09-19] MEDS: 1/2NS w/KCl 20mEq 1000ml 1,000 ML IV SCH (04:59)
[2019-09-19 08:00] VITALS: BP 128/89
[2019-09-19 12:00] VITALS: BP 127/83
[2019-09-19] MEDS: Maintenance Dose:Remdesivir 100mg/NS 230ml x 4 Doses IV SCH ×2 (14:08)
--- NOTE | 2019-09-19 14:12 | Infectious Diseases Prog Note ---
Assessment/Plan Assessment/Plan A 1. COVID 19 pneumonia 2. thrombocytopenia 3. increased LFT improving P 1. consider remdesivir EUA day 3 2. will follow up cultures 3. continue isolation Subjective ROS Limited/Unobtainable: No Constitutional: Denies: fever Respiratory: Reports: dry cough; Denies: shortness of breath Cardiovascular: Reports: no symptoms Gastrointestinal/Abdominal: Reports: no symptoms Genitourinary: Reports: no symptoms Allergies: Coded Allergies: No Known Allergies (Unverified , 09/15/19) Objective Last 24 Hour Vital Signs Date Time Temp Pulse Resp B/P (MAP) Pulse Ox O2 Delivery O2 Flow Rate FiO2 09/19/19 12:00 97.6 71 18 127/83 (98) 98 09/19/19 09:00 Room Air 09/19/19 08:00 97.6 61 19 128/89 (102) 96 09/19/19 04:00 98.2 61 18 134/85 (101) 94 09/19/19 00:00 98.8 58 18 138/78 (98) 95 09/18/19 20:45 Room Air 09/18/19 20:00 98.9 59 18 131/84 (100) 97 09/18/19 16:00 97.6 81 19 130/83 (99) 95 Height (Feet): 5 Height (Inches): 8.00 Weight (Pounds): 150 General Appearance: no acute distress HEENT: mucous membranes moist Respiratory/Chest: lungs clear Cardiovascular: normal rate Abdomen: soft, non tender Extremities: no edema Neurologic/Psychiatric: alert, oriented x 3, responsive Current Medications Medications (Trade) Dose Ordered Sig/Vivek Route PRN Reason Start Time Stop Time Status Last Admin Dose Admin Acetaminophen (Tylenol) 650 mg Q4H PRN ORAL Temp >100.5 09/16/19 17:30 10/16/19 17:29 Dextrose (Dextrose 50%) 25 ml Q30M PRN IV Hypoglycemia 09/15/19 17:15 12/14/19 17:14 Dextrose (Dextrose 50%) 50 ml Q30M PRN IV Hypoglycemia 09/15/19 17:15 12/14/19 17:14 Magnesium Hydroxide (Mom) 30 ml DAILYPRN PRN ORAL Constipation 09/16/19 12:45 10/16/19 12:44 Remdesivir 100 mg/ Sodium Chloride 250 ml @ 250 mls/hr Q24H IV 09/18/19 15:00 09/21/19 15:59 09/19/19 14:08 Sodium 1,000 ml @ 50 mls/hr Q20H IV 09/17/19 14:00 10/17/19 13:59 09/19/19 04:59 Kobi Nichols MD Sep 19, 2019 14:12
[2019-09-19 16:00] VITALS: BP_SYST 127; BP_SYST 132; BP_DIAS 75; BP_DIAS 83
--- NOTE | 2019-09-19 17:08 | General Progress Note ---
Assessment/Plan Problem List: (1) Elevated liver enzymes ICD Codes: R74.8 - Abnormal levels of other serum enzymes SNOMED: 739292350 (2) Community acquired pneumonia ICD Codes: J18.9 - Pneumonia, unspecified organism SNOMED: 355836129 (3) Suspected 2019-nCoV infection ICD Codes: Z20.828 - Contact with and (suspected) exposure to other viral communicable diseases SNOMED: 530862167 (4) Episode of generalized weakness ICD Codes: R53.1 - Weakness SNOMED: 46184662 (5) EMILY (acute kidney injury) ICD Codes: N17.9 - Acute kidney failure, unspecified SNOMED: 8337192, 45917359 (6) Dehydration ICD Codes: E86.0 - Dehydration SNOMED: 37565258 (7) COVID-19 virus detected ICD Codes: U07.1 - COVID-19 SNOMED: 226555326, 671906119 Assessment/Plan: covid, + empiric atb stopped, remdesivir, , us abd cancel no resp distress Subjective Constitutional: Reports: weakness HEENT: Reports: no symptoms Cardiovascular: Reports: no symptoms Respiratory: Reports: no symptoms Gastrointestinal/Abdominal: Reports: no symptoms Genitourinary: Reports: no symptoms Neurologic/Psychiatric: Reports: no symptoms Hematologic/Lymphatic: Reports: no symptoms Allergies: Coded Allergies: No Known Allergies (Unverified , 09/15/19) Objective Last 24 Hour Vital Signs Date Time Temp Pulse Resp B/P (MAP) Pulse Ox O2 Delivery O2 Flow Rate FiO2 09/19/19 12:00 97.6 71 18 127/83 (98) 98 09/19/19 09:00 Room Air 09/19/19 08:00 97.6 61 19 128/89 (102) 96 09/19/19 04:00 98.2 61 18 134/85 (101) 94 09/19/19 00:00 98.8 58 18 138/78 (98) 95 09/18/19 20:45 Room Air 09/18/19 20:00 98.9 59 18 131/84 (100) 97 Intake and Output 09/18/19 09/19/19 19:00 07:00 Intake Total 1200 ml 575 ml Balance 1200 ml 575 ml IV Total 600 ml 575 ml Other 600 ml # Voids 1 Height (Feet): 5 Height (Inches): 8.00 Weight (Pounds): 150 General Appearance: no apparent distress EENT: normal ENT inspection Neck: normal alignment Cardiovascular: normal rate Respiratory/Chest: lungs clear Abdomen: non tender Edema: no edema noted Arm (L), no edema noted Arm (R), no edema noted Leg (L), no edema noted Leg (R), no edema noted Pedal (L), no edema noted Pedal (R), no edema noted 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
[2019-09-19 20:00] VITALS: BP 144/93
[2019-09-20] VITALS: BP 143/80
[2019-09-20] MEDS: 1/2NS w/KCl 20mEq 1000ml 1,000 ML IV SCH (02:00)
[2019-09-20 04:00] VITALS: BP 140/77
[2019-09-20 07:40] LABS: ALANINE AMINOTRANSFERASE 67 U/L (12-78); ALBUMIN 2.8 G/DL (3.4-5.0); ALBUMIN/GLOBULIN RATIO 0.7 (1.0-2.7); ALKALINE PHOSPHATASE 63 U/L (46-116); ANION GAP 14 mmol/L (5-15); ASPARTATE AMINO TRANSFERASE 50 U/L (15-37); BILIRUBIN,TOTAL 0.7 MG/DL (0.2-1.0); BLOOD UREA NITROGEN 11 mg/dL (7-18); CALCIUM 8.6 MG/DL (8.5-10.1); CARBON DIOXIDE 18 MMOL/L (21-32); CHLORIDE 106 MMOL/L (98-107); POTASSIUM 4.7 MMOL/L (3.5-5.1); SODIUM 138 MMOL/L (136-145)
[2019-09-20 07:52] LABS: BILIRUBIN,DIRECT < 0.1 MG/DL (0.0-0.3)
[2019-09-20 08:00] VITALS: BP 141/94
[2019-09-20 10:05] LABS: HEMATOCRIT 42.2 % (42.0-52.0); HEMOGLOBIN 14.3 G/DL (14.2-18.0); MEAN CORPUSCULAR VOLUME 89 FL (80-99); PLATELET COUNT 207 K/UL (150-450); RED BLOOD COUNT 4.74 M/UL (4.70-6.10); WHITE BLOOD COUNT 2.5 K/UL (4.8-10.8)
--- NOTE | 2019-09-20 11:50 | Infectious Diseases Prog Note ---
Assessment/Plan Assessment/Plan antibiotics : remdesivir 09.17.19 - A 1. COVID 19 pneumonia on room air, O2 saturation 98 percent 2. thrombocytopenia 3. increased LFT improving P 1. consider remdesivir EUA day 4 2. will follow up cultures 3. continue isolation Subjective Constitutional: Denies: fever, chills Respiratory: Reports: shortness of breath - decreased, dry cough - decreased Gastrointestinal/Abdominal: Denies: nausea, vomiting, diarrhea Musculoskeletal: Denies: pain Allergies: Coded Allergies: No Known Allergies (Unverified , 09/15/19) Objective Last 24 Hour Vital Signs Date Time Temp Pulse Resp B/P (MAP) Pulse Ox O2 Delivery O2 Flow Rate FiO2 09/20/19 09:00 Room Air 09/20/19 08:00 98.2 62 20 141/94 (110) 94 09/20/19 04:00 98.0 58 18 140/77 (98) 96 09/20/19 00:00 98.1 63 18 143/80 (101) 94 09/19/19 21:00 Room Air 09/19/19 20:00 98.1 56 16 144/93 (110) 95 09/19/19 16:00 98.2 74 19 132/75 (94) 94 09/19/19 16:00 97.6 71 18 127/83 (98) 98 09/19/19 12:00 97.6 71 18 127/83 (98) 98 Height (Feet): 5 Height (Inches): 8.00 Weight (Pounds): 150 Laboratory Tests Test 09/20/19 06:00 09/20/19 10:00 Sodium Level 138 MMOL/L (136-145) Potassium Level 4.7 MMOL/L (3.5-5.1) Chloride Level 106 MMOL/L (98-107) Carbon Dioxide Level 18 MMOL/L (21-32) L Anion Gap 14 mmol/L (5-15) Blood Urea Nitrogen 11 mg/dL (7-18) Creatinine 1.0 MG/DL (0.55-1.30) Estimat Glomerular Filtration Rate > 60 mL/min (>60) Glucose Level 91 MG/DL (74-106) Calcium Level 8.6 MG/DL (8.5-10.1) Total Bilirubin 0.7 MG/DL (0.2-1.0) Direct Bilirubin < 0.1 MG/DL (0.0-0.3) Aspartate Amino Transf (AST/SGOT) 50 U/L (15-37) H Alanine Aminotransferase (ALT/SGPT) 67 U/L (12-78) Alkaline Phosphatase 63 U/L (46-116) Total Protein 6.9 G/DL (6.4-8.2) Albumin 2.8 G/DL (3.4-5.0) L Globulin 4.1 g/dL Albumin/Globulin Ratio 0.7 (1.0-2.7) L White Blood Count 2.5 K/UL (4.8-10.8) L Red Blood Count 4.74 M/UL (4.70-6.10) Hemoglobin 14.3 G/DL (14.2-18.0) Hematocrit 42.2 % (42.0-52.0) Mean Corpuscular Volume 89 FL (80-99) Mean Corpuscular Hemoglobin 30.1 PG (27.0-31.0) Mean Corpuscular Hemoglobin Concent 33.8 G/DL (32.0-36.0) Red Cell Distribution Width 11.0 % (11.6-14.8) L Platelet Count 207 K/UL (150-450) Mean Platelet Volume 7.1 FL (6.5-10.1) Neutrophils (%) (Auto) % (45.0-75.0) Lymphocytes (%) (Auto) % (20.0-45.0) Monocytes (%) (Auto) % (1.0-10.0) Eosinophils (%) (Auto) % (0.0-3.0) Basophils (%) (Auto) % (0.0-2.0) Differential Total Cells Counted 100 Neutrophils % (Manual) 61 % (45-75) Lymphocytes % (Manual) 27 % (20-45) Monocytes % (Manual) 12 % (1-10) H Eosinophils % (Manual) 0 % (0-3) Basophils % (Manual) 0 % (0-2) Band Neutrophils 0 % (0-8) Platelet Estimate Adequate Platelet Morphology Normal Red Blood Cell Morphology Normal Current Medications Medications (Trade) Dose Ordered Sig/Vivek Route PRN Reason Start Time Stop Time Status Last Admin Dose Admin Acetaminophen (Tylenol) 650 mg Q4H PRN ORAL Temp >100.5 7/9/20 17:30 10/16/19 17:29 Dextrose (Dextrose 50%) 25 ml Q30M PRN IV Hypoglycemia 09/15/19 17:15 12/14/19 17:14 Dextrose (Dextrose 50%) 50 ml Q30M PRN IV Hypoglycemia 09/15/19 17:15 12/14/19 17:14 Magnesium Hydroxide (Mom) 30 ml DAILYPRN PRN ORAL Constipation 09/16/19 12:45 10/16/19 12:44 Remdesivir 100 mg/ Sodium Chloride 250 ml @ 250 mls/hr Q24H IV 09/18/19 15:00 09/21/19 15:59 09/19/19 14:08 Sodium 1,000 ml @ 50 mls/hr Q20H IV 09/17/19 14:00 10/17/19 13:59 09/20/19 02:00 Juhi Vincent MD Sep 20, 2019 11:50
[2019-09-20 12:00] VITALS: BP 143/62
[2019-09-20] MEDS: Maintenance Dose:Remdesivir 100mg/NS 230ml x 4 Doses IV SCH ×2 (15:00)
[2019-09-20] MEDS ORDERED: IV Preparation Fee IV ONE (16:54)
--- NOTE | 2019-09-21 01:14 | Discharge Summary ---
DATE OF ADMISSION: 09/15/2019 DATE OF DISCHARGE: 09/20/2019 PERTINENT HISTORY: The patient is a 58-year-old man, who has mild cough, fever, weakness, and elevated liver enzymes. He was found to have COVID-19 positive. PERTINENT PHYSICAL FINDINGS: HEAD EYES, EARS, NOSE, AND THROAT: Unremarkable. LUNGS: Clear. HEART: Regular rhythm. ABDOMEN: Soft. No organomegaly. EXTREMITIES: No edema. COURSE IN THE HOSPITAL: The patient was placed in isolation and COVID-19 was positive. He had mild elevation of liver enzymes. No vomiting, diarrhea and nausea. The patient had no shortness of breath or hypoxemia during the hospital stay. There were some bilateral infiltrates, but he is relatively asymptomatic in view of his relatively benign course, early discharge was arranged. He did not receive Remdesivir in the hospital. FINAL DIAGNOSES: 1. COVID-19 pneumonia. 2. Elevated liver enzymes likely due to COVID-19. 3. Mild thrombocytopenia between 85 and 207,000 likely from COVID-19. DISCHARGE DISPOSITION: Home, on Tylenol p.r.n.. He is to do social isolation, wear a mask and return to the hospital for medical provider should his symptoms worsen. Nas Porras M.D. DR: Amber JOB#: [id number] CC:
== END 2019-09-20 16:55 | disposition home or self-care (01) | DRG 137 ==
LOC: EDBD 10:18 → EMR 13:43 → 4E 14:09 → EDBEDREQ 16:19 → 4E 20:06
DX: U07.1 COVID-19 (principal); J12.89 Other viral pneumonia; N17.9 Acute kidney failure, unspecified; E86.0 Dehydration; M62.82 Rhabdomyolysis; R50.9 Fever, unspecified; D69.6 Thrombocytopenia, unspecified
CPT/HCPCS: 36415; 70450; 71045; 80053; 81003; 82248; 82550; 83605; 83880; 84443; 84484; 85007; 85025; 86803; 87040; 87340; 87517; 90471; 90715; 93005; 96361; 96365; 96368; 99285; J7030